=== PATIENT | male | born 1950 | race Two or more races ===

== ENCOUNTER 2020-01-13 05:00 | Inpatient (IN) | payer OTHER ==
[~2020-01-13] VITALS: Ht 180.3 cm; Wt 83.9 kg
[~2020-01-13 05:00] MED LIST: TAMS0.4C PO; ULTRACET PO; ZYLOPRIM300 MG PO
[2020-01-14] MEDS ORDERED: OMEPRAZOLE20 MG PO (09:14)
== END 2020-01-15 09:10 | disposition home or self-care (01) | DRG 661 ==
LOC: CIR.AMB 05:00 → EDSTATUS 07:45 → CIR.AMB 07:45 → SURH 07:45 → SURG 07:45 → SURH 11:06 → O/R 11:06 → SURH 13:12
PROVIDERS: ADMIT Urology
PROC: BT1FZZZ Fluoroscopy of Left Kidney, Ureter and Bladder (ICD-10-PCS; 2020-01-13)
PROC: 0TC43ZZ Extirpation of Matter from Left Kidney Pelvis, Percutaneous Approach (ICD-10-PCS; principal; 2020-01-13 07:00)
DX: N20.0 Calculus of kidney (principal)

== ENCOUNTER 2020-05-30 07:00 | Inpatient (IN) | payer OTHER ==
[~2020-05-30] VITALS: Ht 180.3 cm; Wt 81.6 kg
[~2020-05-30 07:00] MED LIST changes: +OMEPRAZOLE20 MG PO
[2020-06-01] MEDS ORDERED: SILDENAFIL CIT100 MG (13:57)
== END 2020-06-03 10:20 | disposition home or self-care (01) | DRG 670 ==
LOC: ADM 07:00 → SURH 07:00 → EDSTATUS 07:00 → SURH 06-01 07:00 → O/R 06-01 08:46 → SURH 06-01 08:46
PROVIDERS: ADMIT Urology; ATTEND Urology
PROC: 0TC38ZZ Extirpation of Matter from Right Kidney Pelvis, Via Natural or Artificial Opening Endoscopic (ICD-10-PCS; principal; 2020-06-01 12:45)
DX: N20.0 Calculus of kidney (principal)